=== PATIENT | female | born 1990 | race African-American/Black ===

== ENCOUNTER 2022-08-31 22:11 | Emergency (ER) | payer MEDICAID ==
[~2022-08-31] VITALS: Ht 165.1 cm; Wt 136.0 kg
[2022-08-31 23:10] VITALS: BP 114/72
[2022-08-31] MEDS ORDERED: AZIT250T12 MT (23:33)
[2022-08-31] MEDS ORDERED: ACET-2708 MT (23:33)
== END 2022-08-31 23:53 | disposition home or self-care (01) ==
LOC: ER 22:11
DX: J03.90 Acute tonsillitis, unspecified (principal); R50.9 Fever, unspecified; D64.9 Anemia, unspecified; Z98.890 Other specified postprocedural states
CPT/HCPCS: 81025; 99283

== ENCOUNTER 2024-07-09 20:13 | Emergency (ER) | payer MEDICAID, OTHER ==
[~2024-07-09] VITALS: Ht 165.1 cm; Wt 91.0 kg
[~2024-07-09 20:13] MED LIST: ACET-2708 MT; AZIT250T12 MT
[2024-07-09 20:19] VITALS: BP 147/102; PULSE 60; TEMP 37.1; O2SAT 100
[2024-07-09 21:14] LABS: BASOPHILS % 0.3 % (0.0-2.0); DIFFERENTIAL COMMENT 0; HEMOGLOBIN. 9.8 g/dL (12.0-16.0); MEAN CORPUSCULAR HEMOGLOBIN 24.1 pg (28.0-32.0); MEAN CORPUSCULAR HGB CONC 30.7 g/dL (31.0-37.0); MEAN CORPUSCULAR VOLUME 78.6 fL (81.0-99.0); MEAN PLATELET VOLUME 8.4 fl (7.4-10.4); MONOCYTES % 7.9 % (2.0-8.0); NEUTROPHILS % 81.8 % (40.0-76.0); PLATELET 304 x1000/uL (130-400); RED BLOOD CELL COUNT 4.07 mill/uL (4.2-5.4); RED CELL DISTRIBUTION WIDTH 16.8 % (11.6-14.6); WHITE BLOOD COUNT 8.4 x1000/uL (4.5-11.0)
[2024-07-09 21:22] LABS: CHLORIDE 105 mEq/L (98-107); POTASSIUM 3.8 mEq/L (3.5-5.1); SODIUM 138 mEq/L (136-145)
[2024-07-09 21:23] LABS: CALCIUM 10.1 mg/dL (8.7-10.4); CARBON DIOXIDE 17 mEq/L (21-32)
[2024-07-09 21:28] LABS: CREATININE 0.9 mg/dL (0.6-1.0); GLUCOSE 92 mg/dL (70-105); UREA NITROGEN BLOOD 11 mg/dL (9-23)
[2024-07-09 21:30] LABS: ALANINE AMINOTRANSFERASE 13 IU/L (10-49); ALBUMIN 4.9 g/dL (3.2-4.8); ASPARTATE AMINOTRANSFERASE 24 IU/L (<34); BILIRUBIN DIRECT 0.2 mg/dL (<=3.0); BILIRUBIN TOTAL 0.8 mg/dL (0.1-1.0)
[2024-07-09 21:31] LABS: PROTEIN TOTAL 9.1 g/dL (6.0-8.3)
[2024-07-10 00:12] VITALS: RESP 18
[2024-07-10] MEDS: ONDANSETRON 4MG/5ML UDC PO ONE (00:12)
[2024-07-10] MEDS: KETOROLAC 15MG/ML VIAL IM ONE (00:12)
[2024-07-10] MEDS ORDERED: NAPR-1176 MT (01:11)
== END 2024-07-10 01:42 | disposition home or self-care (01) ==
LOC: ER 20:13
DX: K80.20 Calculus of gallbladder without cholecystitis without obstruction (principal); Z79.1 Long term (current) use of non-steroidal anti-inflammatories (NSAID); Z98.84 Bariatric surgery status; Z98.890 Other specified postprocedural states; Z79.899 Other long term (current) drug therapy
CPT/HCPCS: 99285; 80076; 80048; 83690; 85025; 36415; 76705; 96372; J1885